=== PATIENT | female | born 1965 | race African-American/Black ===

== ENCOUNTER → 2017-08-01 | Emergency (ER) | payer MEDICAID ==
[~2017-08-01] VITALS: Ht 167.6 cm; Wt 85.7 kg
[~2017-08-01] MED LIST: ADULT WAL-100 MG/5 M ORAL; ALBUTEROL SULF8.5 GM INH; ALBUTEROL2.5 MG/3 M HHN; ALPRAZOLAM1 MG PO; AUGMENTIN TAB875 MG PO; AZITHROMYCIN250 MG ORAL; AZITHROMYCIN250 MG PO; Acetaminophen 500mg (ES) tab ORAL ONE; BENADRYL50 MG ORAL; CATAPRES0.2 MG PO; GEODON20 MG PO; GUAIFENESIN-CO118 M1 ORAL; HYDROCODON-ACE1 EAC4 ORAL; IBUPROFEN600 MG ORAL; METOPROLOL SUCC25 MG ORAL; NORCO 5-325 TA1 EACH ORAL; PHENERGAN/CODE120 ML PO; PREDNISONE20 MG ORAL; PRILOSEC20 MG ORAL; PROAIR HFA8.5 GM INH; PROMETHAZINE-C118 M1 ORAL; SIMVASTATIN5 MG PO; TAMIFLU75 MG ORAL; TESSALON PERLE100 M2 ORAL; TYLENOL EXTRA500 MG ORAL; VALIUM10 MG ORAL; XANAX2 MG ORAL; ZITHROMAX250 MG ORAL
[2017-08-01 11:28] VITALS: BP 146/94
--- NOTE | 2017-08-01 14:54 | Emergency Room Report ---
History of Present Illness General Chief Complaint: Flu Like Symptoms Source: Patient Present Illness HPI 52-year-old female presents to ED for evaluation. Patient presents with cough and cold and fever and bodyaches x3 days. Patient has a fever in triage. States she has chronic cough. States history of asthma. Denies or sore throat area denies sick contacts recent travel. No other aggravating relieving factors. Denies any other associated symptoms Allergies: Coded Allergies: No Known Allergies (Verified , 08/11/08) Patient History Past Medical History: HTN, asthma Past Surgical History: none Pertinent Family History: none Social History: Denies: smoking, alcohol use, drug use Now: No Immunizations: UTD Reviewed Nursing Documentation: PMH: Agreed, PSxH: Agreed Nursing Documentation-PMH Hx Hypertension: Yes Hx Asthma: Yes - BRONCHITIS Hx Neurological Problems: Yes - DEPRESSION, ANXIETY Review of Systems All Other Systems: negative except mentioned in HPI Physical Exam Vital Signs Date Time Temp Pulse Resp B/P (MAP) Pulse Ox O2 Delivery O2 Flow Rate FiO2 08/01/17 11:20 101.1 90 24 145/94 100 Room Air Sp02 EP Interpretation: reviewed, normal General Appearance: no apparent distress, alert, GCS 15, non-toxic Head: normocephalic, atraumatic Eyes: bilateral eye normal inspection, bilateral eye PERRL ENT: hearing grossly normal, normal pharynx, no angioedema, normal voice Neck: full range of motion, supple/symm/no masses Respiratory: chest non-tender, lungs clear, normal breath sounds, speaking full sentences Cardiovascular #1: regular rate, rhythm, no edema Cardiovascular #2: 2+ carotid (R), 2+ carotid (L), 2+ radial (R), 2+ radial (L) , 2+ dorsalis pedis (R), 2+ dorsalis pedis (L) Gastrointestinal: normal bowel sounds, non tender, soft, non-distended, no guarding, no rebound Rectal: deferred Genitourinary: normal inspection, no CVA tenderness Musculoskeletal: back normal, gait/station normal, normal range of motion, non- tender Neurologic: alert, oriented x3, responsive, motor strength/tone normal, sensory intact, speech normal Psychiatric: judgement/insight normal, memory normal, mood/affect normal, no suicidal/homicidal ideation Reflexes: 3+ bicep (R), 3+ bicep (L), 3+ tricep (R), 3+ tricep (L), 3+ knee (R) , 3+ knee (L) Skin: normal color, no rash, warm/dry, well hydrated Lymphatic: no adenopathy Medical Decision Making Diagnostic Impression: Primary Impression: Influenza-like symptoms ER Course Hospital Course 52-year-old F presents to ED complaining of fever + bodyaches + cough Differential diagnoses include: URI, pharyngitis, otitis media, influenza Clinical course Patient placed on stretcher. After initial history physical exam reveals a middle aged female in no acute distress. Bilateral TM unremarkable, no pharyngeal erythema. Lungs clear. No CVA tenderness. Given tylenol in ED. Clinical findings consistent with influenza. Given that I will treat her with Tamiflu Diagnosis - influenza-like symptoms Stable and discharged home with prescriptions for tamiflu, promethazine/ codeine. drink plenty of fluids. Instructed to followup with PMD. Return to ED if symptoms recur or worsen Last Vital Signs Date Time Temp Pulse Resp B/P (MAP) Pulse Ox O2 Delivery O2 Flow Rate FiO2 08/01/17 11:29 101 20 Room Air 08/01/17 11:28 101.2 146/94 100 Status: improved Disposition: HOME, SELF-CARE Condition: Stable Scripts Acetaminophen* (TYLENOL EXTRA STRENGTH*) 500 Mg Tablet 500 MG ORAL Q8H Y for Prn Headache/Temp > 101, #30 TAB 0 Refills Prov: GINGER TINEO M.D. 08/01/17 Codeine/Promethazine Hcl* (PROMETHAZINE-CODEINE SYRUP*) 118 Ml Syrup 5 ML ORAL Q6H Y for For Cough, #118 ML 0 Refills Prov: GINGER TINEO M.D. 08/01/17 Oseltamivir Phosphate (Tamiflu) 75 Mg Capsule 75 MG ORAL TWICE A DAY for 5 Days, CAP Prov: GINGER TINEO M.D. 08/01/17 Referrals: [facility],REFERRING (PCP) Patient Instructions: Acute Bronchitis, [id number] GINGER TINEO M.D. Aug 01, 2017 14:54
== END | disposition home or self-care (01) ==
LOC: EMR 12:15
DX: J11.1 Influenza due to unidentified influenza virus with other respiratory manifestations (principal); I10 Essential (primary) hypertension; J45.909 Unspecified asthma, uncomplicated; F41.9 Anxiety disorder, unspecified; F32.9 Major depressive disorder, single episode, unspecified
CPT/HCPCS: 99284

== ENCOUNTER 2017-08-22 09:29 | Emergency (ER) | payer MEDICAID ==
[~2017-08-22] VITALS: Ht 167.6 cm; Wt 85.7 kg
[~2017-08-22 09:29] MED LIST changes: -ADULT WAL-100 MG/5 M ORAL; -Acetaminophen 500mg (ES) tab ORAL ONE
[2017-08-22 09:38] VITALS: BP 155/94
[2017-08-22] MEDS ORDERED: ADULT WAL-100 MG/5 M ORAL (10:11)
[2017-08-22] MEDS ORDERED: ZITHROMAX250 MG ORAL (10:11)
[2017-08-22 10:15] VITALS: BP 155/94
--- NOTE | 2017-08-24 06:16 | Emergency Room Report ---
History of Present Illness General Chief Complaint: Flu Like Symptoms Source: Patient, Medical Record Present Illness HPI Patient 52 female who presented after increased cough and sore throat. Patient gradual onset of symptoms. She reported having productive cough with yellow sputum. She denies any chest pain. She denies leg swelling. The patient stated that she had previously had similar symptoms. She denies any neck stiffness. Allergies: Coded Allergies: No Known Allergies (Verified , 08/11/08) Patient History Past Medical History: see triage record Last Menstrual Period: 8 yrs ago Reviewed Nursing Documentation: PMH: Agreed, PSxH: Agreed Nursing Documentation-PMH Past Medical History: No History, Except For Hx Hypertension: Yes Hx Asthma: Yes - BRONCHITIS Hx Neurological Problems: Yes - DEPRESSION, ANXIETY Review of Systems All Other Systems: negative except mentioned in HPI Physical Exam Vital Signs Date Time Temp Pulse Resp B/P (MAP) Pulse Ox O2 Delivery O2 Flow Rate FiO2 08/22/17 09:33 98.3 77 18 158/94 97 Room Air 98.2 General Appearance: well appearing, no apparent distress, alert, GCS 15 Head: normocephalic, atraumatic ENT: hearing grossly normal, normal voice Neck: full range of motion, supple Respiratory: no respiratory distress, rhonchi, speaking full sentences Gastrointestinal: normal inspection Musculoskeletal: normal inspection, no calf tenderness Neurologic: normal inspection, alert, oriented x3, responsive, normal gait Psychiatric: mood/affect normal Skin: no rash Medical Decision Making Diagnostic Impression: Primary Impression: Pneumonia ER Course Patient presented for cough. Differential diagnosis included but was not limited to bronchitis, pneumonia, pulmonary embolism, pericarditis, asthma, foreign body. Because of complexity of imaging studies were ordered. The chest x-ray one view interpreted by me showed no evident infiltrate and no cardiac size with no pneumothorax. The patient appears to have pneumonia however she does have normal oxygen saturation benign exam. The patient is advised to follow up with primary care doctor in 1-2 days. Patient is advised to return if any worsening condition or if any changes in status that are concerning. This report is dictated with [employer] industrial registered nurse software which may occasionally lead to discrepancies related to use of this software. Last Vital Signs Date Time Temp Pulse Resp B/P (MAP) Pulse Ox O2 Delivery O2 Flow Rate FiO2 08/22/17 10:15 98.0 72 18 155/94 98 Room Air 98.0 Status: improved Disposition: HOME, SELF-CARE Condition: Stable Scripts Azithromycin* (ZITHROMAX*) 250 Mg Tablet 250 MG ORAL DAILY, #6 TAB 0 Refills Take two tables once daily for 1 day, then one tablet once daily for 4 days. Prov: Dileep Perez 08/22/17 Guaifenesin* (ADULT WAL-TUSSIN*) 100 Mg/5 Ml Liquid 10 ML ORAL Q4H, #120 ML Prov: Dileep Perez 08/22/17 Referrals: [facility],REFERRING (PCP) Patient Instructions: Pneumonitis Dileep Perez Aug 24, 2017 06:16
== END 2017-08-22 10:15 | disposition home or self-care (01) ==
LOC: EMR 09:45
DX: J18.9 Pneumonia, unspecified organism (principal); F32.9 Major depressive disorder, single episode, unspecified; F41.9 Anxiety disorder, unspecified; I10 Essential (primary) hypertension
CPT/HCPCS: 99283